=== PATIENT | female | born 1955 | race Asian ===

== ENCOUNTER 2019-07-12 12:09 | Emergency (ER) | payer BC, SELFPAY ==
[~2019-07-12] VITALS: Ht 162.6 cm; Wt 63.5 kg
[2019-07-12 12:18] VITALS: Ht 162.6 cm; Wt 63.5 kg
[2019-07-12 13:32] LABS: BASOPHIL % 0.6 % (0-2); PLATELET COUNT 215 x10^3mcL (130-400); RED CELL DISTRIBUTION WIDTH 12.7 % (11.5-14.5)
[2019-07-12 13:46] LABS: CALCIUM 9.2 mg/dL (8.5-10.1); CARBON DIOXIDE 26.5 mmol/L (21-32); CHLORIDE SERUM 106 mmol/L (98-107); CREATININE SERUM 0.7 mg/dL (0.6-1.0); GFR1 > 60 mL/min; GLUCOSE SERUM 115 mg/dL (74-106); POTASSIUM SERUM 3.7 mmol/L (3.5-5.1); SODIUM SERUM 144 mmol/L (136-145)
[2019-07-12 13:51] LABS: ALKALINE PHOSPHATASE 82 U/L (46-116); ALT/SGPT 24 U/L (14-59); AST/SGOT 16 U/L (15-37); BILIRUBIN TOTAL 0.5 mg/dL (0.20-1.00); TOTAL PROTEIN, SERUM 7.6 g/dL (6.4-8.2)
[2019-07-12 14:52] VITALS: BP 108/66
== END 2019-07-12 15:45 | disposition left against medical advice (07) ==
LOC: ED 12:09
PROVIDERS: Emergency Medicine
DX: R07.89 Other chest pain (principal); R06.02 Shortness of breath; E78.00 Pure hypercholesterolemia, unspecified
CPT/HCPCS: 36415; 83880; Q0092